=== PATIENT | male | born 1965 ===

== ENCOUNTER 2025-06-21 06:17 | Day surgery (SDC) | payer BC, SELFPAY ==
[2025-06-21 12:52] LABS: Glucose - Point of Care 103 mg/dl (70-99)
== END 2025-06-21 13:48 | disposition home or self-care (01) ==
LOC: GI 06:17
PROVIDERS: ATTENDING PHYSICIAN Internal Medicine Gastroenterology
DX: Z12.11 Encounter for screening for malignant neoplasm of colon (principal); K64.8 Other hemorrhoids; D12.2 Benign neoplasm of ascending colon
CPT/HCPCS: 45385; 45380; 82962; 88305